=== PATIENT | male | born 1970 | race Caucasian/White ===

== ENCOUNTER 2025-03-12 13:30 | Emergency (ER) | payer OTHER, SELFPAY ==
[2025-03-12 13:32] VITALS: BP 166/101
[2025-03-12 13:51] LABS: Hematocrit 44.3 % (39.0-52.0); Hemoglobin 14.8 g/dL (13.0-18.0); Mean Corp Hgb Conc. 33.4 g/dL (33.0-37.0); Mean Corpuscular Volume 92.3 fL (80.0-94.0); Nucleated Red Blood Cells % 0 % (-); Platelet Count 161 10^3/uL (130-400); Red Cell Dist. Width 12.1 % (11.5-14.5)
[2025-03-12 13:53] LABS: Urine Character Clear (Clear)
[2025-03-12 14:13] LABS: ALT (SGPT) 32 U/L (0-50); AST (SGOT) 21 U/L (17-59); Albumin 5.0 g/dl (3.5-5.0); Alkaline Phosphatase 59 U/L (38-126); Blood Urea Nitrogen 22 mg/dl (9-20); Calcium 9.5 mg/dl (8.4-10.2); Carbon Dioxide 29 mmol/L (22-30); Chloride 108 mmol/L (98-107); Glucose 104 mg/dl (70-99); Potassium 4.4 mmol/L (3.5-5.1); Sodium 142 mmol/L (135-145); Total Protein 7.7 g/dl (6.3-8.2); eGFR > 60.00
--- NOTE | 2025-03-12 14:47 | ED.GENMED ---
History of Present Illness
General
Chief Complaint: Back Pain
Source: patient
Exam Limitations: none
Time Seen by Provider: 03/12/25 14:33
Nursing documentation reviewed up to this point in time: agreed with
History of Present Illness
History of Present Illness:
Patient is a healthy 54-year-old male who presents to the emergency department for evaluation of lower back pain. Patient reports this pain initially started with left inguinal pain about 1 month ago which has persisted although mildly improved.
He then states that few days ago he developed lower back discomfort, more noticeable on the left side. He feels the pain radiating around into his left testicular/groin area. He denies any swelling or redness of the testicular region. He states
his symptoms are worse when he is sitting and has not noticed any worsening specifically with movement. He has been able to walk 7 miles without difficulty.
He has not had any dysuria or hematuria. No nausea, vomiting, diarrhea, or constipation. He denies any fevers although has felt 'chilly'. No numbness/tingling in bilateral lower extremities or saddle paresthesias.
Patient denies any chest pain or shortness of breath.
Patient was seen at a urologist initially when symptoms began and states that no testing was done however he was prescribed a course of ciprofloxacin. He took this for 2 weeks however stopped early as it was causing him nausea
Review of Systems
Review of Systems
Allergies reviewed?: Yes
All Other Systems: ROS reviewed and negative except as documented in HPI and ROS
Phy Exam
Physical Exam
Physical Exam:
Vitals: Hypertensive, otherwise vital signs stable. Afebrile
General: Patient is well appearing, no acute distress. Nontoxic appearing
Skin: Warm and dry, no rashes or lesions
Head: Normocephalic, atraumatic
Eyes: Sclera nonicteric.
Throat: Protecting airway
Neck: Normal ROM, no cervical spine tenderness, no meningismus
Cardiac: Regular rate and rhythm, no murmurs.
Pulm: Normal respiratory effort, no wheezes, rales, rhonchi heard on exam
Abdomen: Abdomen soft and nontender. Mild tenderness over left flank without ecchymoses or rash
: No testicular swelling or tenderness. No erythema or rash in groin area. No palpable bulge or any acute
Extremities: No evidence of cyanosis or edema. Strength 5/5 in bilateral lower extremities with normal sensation. Straight leg raise negative.
Neuro: AAOx3. No focal neurologic deficits.
Psychiatric: Normal affect.
Course
Orders/Labs/Results
Orders:
Orders
03/12/25 13:44
CMP [Comprehensive Metabolic Panel] Urgent
Complete Blood Count/With Diff Urgent
Urinalysis Reflex To Culture Urgent
Date Specimen was Collected: 03/12/25
Time Specimen was Collected: 13:37
03/12/25 14:43
CT Abd/pelvis W Iv Cont Urgent
Comment:
Reason For Exam: Left inguinal pain
Ketorolac [Toradol] 15 mg IV NOW STA
Abnormal Lab Results
03/12/25
13:44
Chloride 108 H mmol/L
(98-107)
BUN 22 H mg/dl
(9-20)
Glucose 104 H mg/dl
(70-99)
03/12/25 13:44
03/12/25 13:44
Vital Signs
Initial and Last Documented VS:
Initial Vital Signs
Temp Pulse Resp BP Pulse Ox
98.6 F 105 16 166/101 98
03/12/25 13:32 03/12/25 13:32 03/12/25 13:32 03/12/25 13:32 03/12/25 13:32
Last Documented Vital Signs
Temp Pulse Resp BP Pulse Ox
98.6 F 67 18 152/107 98
03/12/25 13:32 03/12/25 17:16 03/12/25 17:16 03/12/25 17:16 03/12/25 17:16
MDM/Problems Addressed
Differential Diagnosis Includes:
Not limited to: Sciatica/neuropathic pain, muscle strain, cystitis, pyelonephritis, nephrolithiasis, renal abscess, etc.
MDM/Problems Addressed:
54-year-old male presenting with 1 month of left back discomfort radiating to left groin. Symptoms seem worse with sitting however no clear correlation to certain movements. He was partially treated for UTI by urologist although states no
urinalysis was ever run. No fevers or urinary symptoms. No abdominal pain. No chest pain or shortness of breath. Vital signs as above. On exam�patient well-appearing, in no apparent distress. Abdomen soft and nontender. Minimal reproducible
tenderness in the left flank/inguinal region. exam unremarkable without any evidence of erythema, scrotal edema or rash. No palpable hernia. Labs were obtained prior to my evaluation without any clinically significant abnormalities.
Urinalysis shows no evidence of infection or red blood cells.
At this point�overall suspicion is likely musculoskeletal etiology, possibly neuropathic pain. However�given persistent symptoms and subjective chills, as well as partially treated suspected UTI�will obtain CT scan with contrast to rule out other
acute intra-abdominal pathologies. Will give Toradol for pain.
Update: CT scan without acute abnormalities. Mild bladder wall thickening noted however no evidence of infection on UA today. Do not feel antibiotics indicated at this time as patient is afebrile with no leukocytosis and no evidence of infection
on UA. No other acute intra-abdominal/pelvic abnormalities noted. Do not suspect vascular catastrophe. Symptoms at this point likely musculoskeletal in nature. Advised Tylenol/NSAIDs, and rest. He will continue to follow-up with urology for
further evaluation as well as primary care. Very strict return precautions discussed
Chronic conditions affecting care:
N/A
Acute Exacerbation and/or Progression of Chronic Illness:
N/A
*Radiology
Radiology exam reviewed: radiology read reviewed
*Pulse Oximetry
SaO2: 98
Oxygen Mode of Delivery: Room air
Patient hypoxic: no
*EKG
Interpreted by ED Provider?: NA
*Civil Geotechnical Engineer Interpretation
Rate: Civil Geotechnical Engineer- N/A
*Critical Care Note
Total Time (30-74mins, 75-104mins- exclusive of procedures): Not Applicable
ED Attending Note
-
Portions of this chart may have been created with voice recognition software.� Occasional wrong word or��sound alike� substitutions may have occurred due to the inherent limitations of voice recognition software.
Discharge Plan
Departure
Patient Disposition: Home (Routine Discharge)
Date of Disposition: 03/12/25
Time of Disposition: 16:53
Patient with high blood pressure during this ER visit?: Yes
Condition: Good
Discharge Problem:
Left low back pain
Instructions: Low Back Pain (DC), BLOOD PRESSURE
Activity Restrictions/Additional Instructions:
RETURN TO THE EMERGENCY DEPARTMENT WITH ANY FEVERS, CHILLS, PAIN WITH URINATION/DIFFICULTIES URINATING, NUMBNESS/TINGLING IN EXTREMITIES, LOSS OF BOWEL/BLADDER CONTROL, INTRACTABLE PAIN, WORSENING IN CURRENT SYMPTOMS, OR ANY OTHER CONCERNS
- As discussed�your CT scan showed no acute abnormalities. Your lab work and urinalysis showed no acute abnormalities. You were given a dose of IV Toradol in the emergency department.
- Please continue to take Tylenol and/or Motrin as needed for pain. You can apply topical lidocaine patches.
- Follow-up with your primary care provider and urologist for further evaluation/management to ensure that symptoms improve
Monitor your symptoms closely and return to the emergency department with any acute worsening/new symptoms or any other concerns
Interventions
Interventions:
*Risk Screen - Suicide Last Done: 03/12/25 13:32
*Neglect/Abuse Screening Last Done: 03/12/25 13:32
*Nursing Disposition Last Done: 03/12/25 17:18
ED-Musculoskeletal Assessment Last Done: 03/12/25 14:34
Discharge Date and Time
Discharge Date/Time: 03/12/25 17:20
Print Language: CYMRAES
[2025-03-12] MEDS: TORADOL 15 MG IV (14:50)
[2025-03-12 17:16] VITALS: BP 152/107
== END 2025-03-12 17:20 | disposition home or self-care (01) ==
LOC: EMR 13:30
PROVIDERS: Emergency Medicine; EMERGENCY PHYSICIAN Emergency Medicine
DX: M54.50 Low back pain, unspecified (principal); N50.812 Left testicular pain
CPT/HCPCS: 96374; 99284; 74177; 80053; 81003; 85025; Q9967